=== PATIENT | female | born 1975 | race Caucasian/White ===

== ENCOUNTER 2019-05-31 10:14 | Emergency (ER) | payer SELFPAY ==
--- NOTE | 2019-05-31 10:16 | EDM.PDOC ---
ED HPI GENERAL MEDICAL PROBLEM - General Stated Complaint: BLOOD IN EAR Time Seen by Provider: 05/31/19 10:15 Source of Information: Reports: Patient History Limitations: Reports: No Limitations - History of Present Illness INITIAL COMMENTS - FREE TEXT/NARRATIVE: HISTORY AND PHYSICAL: History of present illness: Patient is a 43-year-old female who presents to the emergency room with complaints of sinus pressure/congestion 4 days. She states this morning she felt a "pop" in her left ear and had been scratching as her left ear was causing some irritation. She states when she had put her nail in her ear canal she had noticed some blood. She was concerned that she perforated her eardrum. Patient denies any fever, chills, headache, change in vision, syncope or near syncope. Denies any chest pain, back pain, shortness of breath or cough. Denies any abdominal pain, nausea, vomiting, diarrhea, constipation or dysuria. Has not noted any blood in urine or stool. Patient has been eating and drinking appropriately. Review of systems: As per history of present illness and below otherwise all systems reviewed and negative. Past medical history: As per history of present illness and as reviewed below otherwise noncontributory. Surgical history: As per history of present illness and as reviewed below otherwise noncontributory. Social history: See social history for further information Family history: As per history of present illness and as reviewed below otherwise noncontributory. Physical exam: General: Well-developed and well-nourished 43-year-old female. Alert and oriented. Nontoxic appearing and in no acute distress. HEENT: Atraumatic, normocephalic, pupils equal and reactive bilaterally, negative for conjunctival pallor or scleral icterus, mucous membranes moist, TMs normal bilaterally, small abrasion on the wall of the left ear canal with dried blood noted, bilateral maxillary sinus tenderness, throat clear, neck supple, nontender, trachea midline. No drooling or trismus noted. No meningeal signs. No hot potato voice noted. Lungs: Clear to auscultation, breath sounds equal bilaterally, chest nontender. Heart: S1S2, regular rate and rhythm without overt murmur Abdomen: Soft, nondistended, nontender. Skin: Intact, warm, dry. No lesions or rashes noted. Extremities: Atraumatic, moves all extremities per self without difficulty or deficits, negative for cords or calf pain. Neurovascular unremarkable. Neuro: Awake, alert, oriented. Cranial nerves II through XII unremarkable. Cerebellum unremarkable. Motor and sensory unremarkable throughout. Exam nonfocal. Notes: Medication and supportive care measures were reviewed and discussed. Voices understanding and is agreeable to plan of care. Denies any further questions or concerns at this time. Diagnostics: None Therapeutics: None Prescription: Doxycycline Impression: Abrasion in the ear cannal Sinusitis Plan: 1. Avoid placing anything in the ear canal. Use the ear drops as directed. 2. Tylenol and/or ibuprofen as needed for pain management. 3. Follow-up with your primary care provider as we discussed. Return to ED as needed and as discussed. Definitive disposition and diagnosis as appropriate pending reevaluation and review of above. - Related Data Allergies Allergy/AdvReac Type Severity Reaction Status Date / Time amoxicillin Allergy Difficulty Verified 05/31/19 10:23 Breathing Penicillins Allergy Difficulty Verified 05/31/19 10:23 Breathing Home Meds: Home Meds Doxycycline [Vibramycin] 100 mg PO BID 7 Days #14 cap 05/31/19 [Rx] ED ROS ENT - Review of Systems Review Of Systems: ROS reveals no pertinent complaints other than HPI. ED EXAM, ENT - Physical Exam Exam: See Below (See dictation) Departure - Departure Time of Disposition: 10:26 Disposition: Home, Self-Care 01 Clinical Impression: Ear canal abrasion Qualifiers: Encounter type: initial encounter Laterality: left Qualified Code(s): S00.412A - Abrasion of left ear, initial encounter Sinusitis Qualifiers: Sinusitis location: maxillary Chronicity: acute Recurrence: non-recurrent Qualified Code(s): J01.00 - Acute maxillary sinusitis, unspecified - Discharge Information Prescriptions: Doxycycline [Vibramycin] 100 mg PO BID 7 Days #14 cap Instructions: Sinusitis, Adult, [id number] Additional Instructions: The following information is given to patients seen in the emergency department who are being discharged to home. This information is to outline your options for follow-up care. We provide all patients seen in our emergency department with a follow-up referral. The need for follow-up, as well as the timing and circumstances, are variable depending upon the specifics of your emergency department visit. If you don't have a primary care physician on staff, we will provide you with a referral. We always advise you to contact your personal physician following an emergency department visit to inform them of the circumstance of the visit and for follow-up with them and/or the need for any referrals to a consulting specialist. The emergency department will also refer you to a specialist when appropriate. This referral assures that you have the opportunity for follow-up care with a specialist. All of these measure are taken in an effort to provide you with optimal care, which includes your follow-up. Under all circumstances we always encourage you to contact your private physician who remains a resource for coordinating your care. When calling for follow-up care, please make the office aware that this follow-up is from your recent emergency room visit. If for any reason you are refused follow-up, please contact the [facility] Emergency Department at and asked to speak to the emergency department charge nurse. [facility] [address] [place] [id number] [facility] [address] [place] [id number] 1. Avoid placing anything in the ear canal. Use the antibiotic as directed. 2. Tylenol and/or ibuprofen as needed for pain management. 3. Follow-up with your primary care provider as we discussed. Return to ED as needed and as discussed.
== END 2019-05-31 10:34 | disposition home or self-care (01) ==
LOC: MW.ED 10:14
DX: S00.412A Abrasion of left ear, initial encounter (principal); J01.00 Acute maxillary sinusitis, unspecified; Z88.0 Allergy status to penicillin; Z88.1 Allergy status to other antibiotic agents; X58.XXXA Exposure to other specified factors, initial encounter
CPT/HCPCS: 99282

== ENCOUNTER 2020-11-03 10:30 | Emergency (ER) | payer SELFPAY ==
[2020-11-03] MEDS ORDERED: methylPREDNISolone Sodium Succinate 125 MG/2 ML SDV IVPUSH ONE (10:36)
[2020-11-03] MEDS ORDERED: diphenhydrAMINE 50 MG/ML SDV IVPUSH ONE (10:36)
--- NOTE | 2020-11-03 10:41 | EDM.PDOC ---
ED HPI GENERAL MEDICAL PROBLEM - General Stated Complaint: ALLERGIC REACTION Time Seen by Provider: 11/03/20 10:32 - History of Present Illness INITIAL COMMENTS - FREE TEXT/NARRATIVE: 45-year-old female not take any medications currently presenting with diffuse itching painful rash that started yesterday has been gradually worsening and is associated with a sensation of throat tightness and difficulty swallowing but no trouble breathing. No fevers no neck pain or stiffness no sore throat but a sensation of throat tightness. Patient tried to take Benadryl last night but was unable to swallow. She states she is a feeling of a lump in her throat. No nausea or vomiting no diarrhea. History of eczema and allergy to penicillins. Denies any new foods or hygiene products no close new laundry detergent etc. She does have a history of eczema. States that for this reason she is very careful about what she expresses septic. No exacerbating or alleviating factors radiation or other associated symptoms. generalized all over Pain Score (Numeric/FACES): 7 - Related Data Allergies Allergy/AdvReac Type Severity Reaction Status Date / Time amoxicillin Allergy Difficulty Verified 05/31/19 10:23 Breathing latex Allergy Hives Verified 11/03/20 10:59 Penicillins Allergy Difficulty Verified 05/31/19 10:23 Breathing Home Meds: Home Meds predniSONE 40 mg PO WITHBREAKFAST 4 Days #4 tab 11/03/20 [Rx] Past Medical History - Infectious Disease History Infectious Disease History: Reports: Chicken Pox - Past Surgical History Female Surgical History: Reports: D&C, Hysterectomy Musculoskeletal Surgical History: Reports: Shoulder Surgery Social & Family History - Family History Family Medical History: No Pertinent Family History - Caffeine Use Caffeine Use: Reports: Coffee ED ROS GENERAL - Review of Systems Review Of Systems: See Below Free Text/Narrative/Comment: General: No fever. Skin: Per HPI Eyes: No vision problems. ENT: Per HPI Neck: No neck stiffness. Respiratory: No shortness of breath. Cardiac: No chest pain. Gastrointestinal: No nausea, vomiting or abdominal pain. Urinary: No dysuria. Musculoskeletal: No myalgias/arthralgias. Neurologic: No headache. ED EXAM, GENERAL - Physical Exam Exam: See Below Free Text/Narrative:: General Appearance: No acute distress, appears comfortable Skin: Diffuse slightly raised erythematous maculopapular rash over the extremities and less so over the torso no exudate no drainage seems most consistent with hives. HEENT: Normocephalic/atraumatic, sclera anicteric, mucous membranes moist, no stridor no intraoral or perioral swelling Neck: Normal range of motion Chest and Lungs: Bilateral breath sounds, clear to auscultation, no wheezing Cardiovascular: Regular rate and rhythm, no murmur Abdomen: Soft, non-tender Musculoskeletal: No edema or tenderness Neurologic: Awake, alert, no obvious deficits, moving all extremities Psychiatric: Appropriate, cooperative Course - Vital Signs Last Recorded V/S: Last Vital Signs Temp 97.2 F 11/03/20 10:52 Pulse 103 H 11/03/20 10:52 Resp 18 11/03/20 10:52 BP 156/77 H 11/03/20 10:52 Pulse Ox 98 11/03/20 10:52 - Orders/Labs/Meds Meds: Medications Discontinued Medications Generic Name Dose Route Start Last Admin Trade Name Freq PRN Reason Stop Dose Admin Diphenhydramine HCl 50 mg 11/03/20 10:36 11/03/20 10:45 Benadryl IVPUSH 11/03/20 10:37 50 mg ONETIME ONE Administration Methylprednisolone Sodium Succinate 125 mg 11/03/20 10:36 11/03/20 10:45 Solu-Medrol IVPUSH 11/03/20 10:37 125 mg ONETIME ONE Administration Departure - Departure Time of Disposition: 11:45 Disposition: Home, Self-Care 01 Condition: Good Clinical Impression: Allergic reaction - Discharge Information *PRESCRIPTION DRUG MONITORING PROGRAM REVIEWED*: Not Applicable *COPY OF PRESCRIPTION DRUG MONITORING REPORT IN PATIENT PAM: Not Applicable Prescriptions: predniSONE 40 mg PO WITHBREAKFAST 4 Days #4 tab Instructions: Allergies, Adult Referrals: Rob Tubbs MD [Primary Care Provider] - 3 Days Kapil Denny MD [Ordering Only Provider] - Additional Instructions: Your first dose of prednisone should be tomorrow morning with breakfast. This prescription will last 4 days. Please plan to take 50 mg of Benadryl every 8 hours for the next few days. The first dose of this should be at approximately 430 today. My hope and expectation is that your symptoms will slowly improve over the next 24 to 48 hours. If you have persistent symptoms following this then I encourage you to follow-up with either dermatology clinic or your primary care doctor. If you develop trouble breathing vomiting or worsening symptoms please return to the ER. The following information is given to patients seen in the emergency department who are being discharged to home. This information is to outline your options for follow-up care. We provide all patients seen in our emergency department with a follow-up referral. The need for follow-up, as well as the timing and circumstances, are variable depending upon the specifics of your emergency department visit. If you don't have a primary care physician on staff, we will provide you with a referral. We always advise you to contact your personal physician following an emergency department visit to inform them of the circumstance of the visit and for follow-up with them and/or the need for any referrals to a consulting specialist. The emergency department will also refer you to a specialist when appropriate. This referral assures that you have the opportunity for follow-up care with a specialist. All of these measure are taken in an effort to provide you with optimal care, which includes your follow-up. Under all circumstances we always encourage you to contact your private physician who remains a resource for coordinating your care. When calling for follow-up care, please make the office aware that this follow-up is from your recent emergency room visit. If for any reason you are refused follow-up, please contact the [facility] Emergency Department at and asked to speak to the emergency department charge nurse. Sepsis Event Note (ED) - Focused Exam Vital Signs: Vital Signs Temp Pulse Resp BP Pulse Ox 11/03/20 10:52 97.2 F 103 H 18 156/77 H 98 - Assessment/Plan Assessment:: 45-year-old female presenting with signs and symptoms that are most consistent with allergic reaction. No clear trigger at this point. Benadryl and Solu- Medrol IV ordered given severity of symptoms and difficulty swallowing. But no signs of true anaphylaxis at this point no indication for epinephrine. We will continue to monitor closely. No findings that would suggest cellulitis or other acute infective process at this point. 1144: On reassessment patient's rash is very slightly less erythematous. However, she still has significant symptoms. That said she has no difficulty breathing no nausea no vomiting no intraoral or perioral swelling no signs of anaphylaxis. She continues to have a globus sensation. On additional assessment she does not have signs that suggest bedbugs or scabies. The rash does appear primarily allergic in nature. Patient and I discussed a trial of subcutaneous epinephrine. However she does not have any difficulty breathing vomiting or change in vital signs that necessitated use. Given that the patient and I have decided to hold off on epinephrine trial at this time. Patient will be discharged with scheduled prednisone for 4 days as well as a plan to do 50 mg of Benadryl every 8 hours. Patient encouraged to follow-up with dermatology if symptoms do not improve. Strict return precautions discussed and understood.
== END 2020-11-03 12:00 | disposition home or self-care (01) ==
LOC: MW.ED 10:30
DX: T78.40XA Allergy, unspecified, initial encounter (principal); Z88.0 Allergy status to penicillin; Z91.040 Latex allergy status
CPT/HCPCS: 96374; 96375; 99283; J1200; J2930; 99282

== ENCOUNTER 2020-11-06 14:20 | Emergency (ER) | payer SELFPAY ==
--- NOTE | 2020-11-06 15:54 | EDM.PDOC ---
ED HPI GENERAL MEDICAL PROBLEM - General Chief Complaint: General Stated Complaint: POSSIBLE ALLERGIC REACTION Time Seen by Provider: 11/06/20 14:44 Source of Information: Reports: Patient History Limitations: Reports: No Limitations - History of Present Illness INITIAL COMMENTS - FREE TEXT/NARRATIVE: HISTORY AND PHYSICAL: History of present illness: Patient is a 45-year-old female who presents emergency room today with concern of hives that have been ongoing for the past 4 days. Patient states that she was seen in the emergency room a few days ago and was given prednisone 40 mg was instructed to take Benadryl. Patient states that she has been taking Benadryl and taking the prednisone but states despite this, she continues to have the hives and states that they are itchy and bothersome to her. Patient is unsure which she is allergic to but states in the past she has had this occur before with seasonal allergies. Patient denies any difficulties breathing or feeling any sensation of swelling in her mouth. Patient states that she would follow-up with her primary care provider and the photonic laboratory technician but she is having issues with insurance so has not been able to do this. Patient states that she does have an appointment tomorrow morning with her primary care provider and states that she will "pay upfront "to see him tomorrow and plans on seeing him. Her primary care provider is Dr. Tubbs. Patient denies any new symptoms from prior evaluation in the emergency room. Patient states that she is out of prednisone tomorrow. Patient denies fever, chills, chest pain, shortness of breath, or cough. Denies headache, neck stiff ness, change in vision, syncope, or near syncope. Denies nausea, vomiting, abdominal pain, diarrhea, constipation, or dysuria. Has not noted any blood in urine or stool. Patient has been eating and drinking appropriately. Review of systems: As per history of present illness and below otherwise all systems reviewed and negative. Past medical history: As per history of present illness and as reviewed below otherwise noncontributory. Surgical history: As per history of present illness and as reviewed below otherwise nonco ntributory. Social history: See social history for further information Family history: As per history of present illness and as reviewed below otherwise noncontributory. Physical exam: General: Patient is alert, oriented, and in no acute distress. Patient sitting comfortably on exam table. HEENT: No lip edema, tongue edema, or oropharyngeal edema. No stridor. Atraumatic, normocephalic, pupils equal and reactive bilaterally, negative for conjunctival pallor or scleral icterus, mucous membranes moist, TMs normal bilaterally, throat clear, neck supple, nontender, trachea midline. No drooling or trismus noted. No meningeal signs. No hot potato voice noted. Lungs: Clear to auscultation, breath sounds equal bilaterally, chest nontender. Heart: S1S2, regular rate and rhythm without overt murmur Abdomen: Soft, nondistended, nontender. Negative for masses or hepatosplenomegaly. Negative for costovertebral tenderness. Pelvis: Stable nontender. Genitourinary: Deferred. Rectal: Deferred. Skin: Diffusely urticaria. Otherwise, intact, warm, dry. No lesions or rashes noted. Extremities: Atraumatic, negative for cords or calf pain. Neurovascular unremarkable. Neuro: Awake, alert, oriented. Cranial nerves II through XII unremarkable. Cerebellum unremarkable. Motor and sensory unremarkable throughout. Exam nonfocal. Notes: On exam, patient does have diffusely urticaria but does not have any lip edema, tongue edema, oropharyngeal edema, or stridor. Patient has alert, oriented, and in no acute distress and breathing comfortably on exam. She is currently taking prednisone 40 mg and is out of prednisone tomorrow. We will give patient an additional 2 days of prednisone but will decrease the dose to 20 mg. Patient states she is also anxious about the possibility of having swelling of her airway. I will provide patient with EpiPen prescription. Discussed continually taking Benadryl. Patient has an appointment tomorrow morning with her primary care provider to address these concerns. Discussed the importance for going to this appointment and following up with her primary care provider in the morning. Voices understanding and is agreeable to plan of care. Denies any further questions or concerns at this time. Diagnostics: None Therapeutics: None Prescription: Prednisone 20 mg x 2 tabs, EpiPen Impression: Urticaria Allergic reaction Plan: 1. Avoid triggers. Continue to monitor for possible exposures/triggers/foods. 2. While symptomatic continue to routinely take Benadryl 50mg every 4-6 hours and Zantac 150mg twice daily. Take medication as prescribed. 3. Carry your Epi-Pen with you at all times. Use in the case of an emergency and call 911 and/or present to the ER. 4. You may use topical calamine lotion, cool tempid oatmeal baths, Aveeno bath/lotions. 5. Consider formal allergy testing once you have completed your medications and have improved. 6. Please follow up with your Primary care doctor tomorrow as scheduled. Return to the ED as needed and as discussed. Definitive disposition and diagnosis as appropriate pending reevaluation and review of above. general Pain Score (Numeric/FACES): 3 - Related Data Allergies Allergy/AdvReac Type Severity Reaction Status Date / Time amoxicillin Allergy Difficulty Verified 11/06/20 14:56 Breathing latex Allergy Hives Verified 11/06/20 14:56 Penicillins Allergy Difficulty Verified 11/06/20 14:56 Breathing Home Meds: Home Meds predniSONE 40 mg PO WITHBREAKFAST 4 Days #4 tab 11/03/20 [Rx] predniSONE 40 mg PO WITHBREAKFAST 2 Days #4 tab 11/04/20 [Rx] EPINEPHrine [Epipen 2-Cyrus] 0.3 mg IJ ONETIME PRN #1 auto.injct 11/06/20 [Rx] predniSONE [Prednisone] 20 mg PO DAILY 5 Days #2 tablet 11/06/20 [Rx] Past Medical History HEENT History: Reports: Sinusitis Gastrointestinal History: Reports: Other (See Below) Other Gastrointestinal History: states within past year "had bowel infection" but was not sure what it was 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 (See Below) Other PARENTING SKILLS INSTRUCTOR History: D&C, medical abortions, emergency hysterectomy Psychiatric History: Reports: Anxiety Hematologic History: Reports: None Oncologic (Cancer) History: Reports: None Dermatologic History: Reports: Eczema - Infectious Disease History Infectious Disease History: Reports: Chicken Pox - Past Surgical History Female Surgical History: Reports: D&C, Hysterectomy Musculoskeletal Surgical History: Reports: Shoulder Surgery Social & Family History - Family History Family Medical History: No Pertinent Family History - Caffeine Use Caffeine Use: Reports: Coffee, Soda ED ROS GENERAL - Review of Systems Review Of Systems: Comprehensive ROS is negative, except as noted in HPI. ED EXAM, GENERAL - Physical Exam Exam: See Below (See dictation) Course - Vital Signs Last Recorded V/S: Last Vital Signs Temp 95.8 F L 11/06/20 14:51 Pulse 79 11/06/20 16:03 Resp 18 11/06/20 16:03 BP 127/81 11/06/20 16:03 Pulse Ox 94 L 11/06/20 16:03 Departure - Departure Time of Disposition: 15:53 Disposition: Home, Self-Care 01 Clinical Impression: Urticaria Allergic reaction Qualifiers: Encounter type: subsequent encounter Qualified Code(s): T78.40XD - Allergy, unspecified, subsequent encounter - Discharge Information Prescriptions: EPINEPHrine [Epipen 2-Cyrus] 0.3 mg IJ ONETIME PRN #1 auto.injct PRN Reason: Other predniSONE [Prednisone] 20 mg PO DAILY 5 Days #2 tablet Instructions: Allergies, Adult Referrals: PCP,None [Primary Care Provider] - Forms: ED Department Discharge Additional Instructions: The following information is given to patients seen in the emergency department who are being discharged to home. This information is to outline your options for follow-up care. We provide all patients seen in our emergency department with a follow-up referral. The need for follow-up, as well as the timing and circumstances, are variable depending upon the specifics of your emergency department visit. If you don't have a primary care physician on staff, we will provide you with a referral. We always advise you to contact your personal physician following an emergency department visit to inform them of the circumstance of the visit and for follow-up with them and/or the need for any referrals to a consulting specialist. The emergency department will also refer you to a specialist when appropriate. This referral assures that you have the opportunity for follow-up care with a specialist. All of these measure are taken in an effort to provide you with optimal care, which includes your follow-up. Under all circumstances we always encourage you to contact your private physician who remains a resource for coordinating your care. When calling for follow-up care, please make the office aware that this follow-up is from your recent emergency room visit. If for any reason you are refused follow-up, please contact the [facility] Emergency Department at and asked to speak to the emergency department charge nurse. [facility] [address] [place] [id number] [id number] [place] [address] 1. Avoid triggers. Continue to monitor for possible exposures/triggers/foods. 2. While symptomatic continue to routinely take Benadryl 50mg every 4-6 hours and Zantac 150mg twice daily. Take medication as prescribed. 3. Carry your Epi-Pen with you at all times. Use in the case of an emergency and call 911 and/or present to the ER. 4. You may use topical calamine lotion, cool tempid oatmeal baths, Aveeno bath/lotions. 5. Consider formal allergy testing once you have completed your medications and have improved. 6. Please follow up with your Primary care doctor tomorrow as scheduled. Return to the ED as needed and as discussed. Sepsis Event Note (ED) - Evaluation Sepsis Screening Result: No Definite Risk - Focused Exam Vital Signs: Vital Signs Temp Pulse Resp BP Pulse Ox 11/06/20 16:03 79 18 127/81 94 L 11/06/20 14:51 95.8 F L 76 18 131/80 96
== END 2020-11-06 16:05 | disposition home or self-care (01) ==
LOC: MW.ED 14:20
DX: L50.0 Allergic urticaria (principal); Z91.040 Latex allergy status; Z88.0 Allergy status to penicillin
CPT/HCPCS: 99283

== ENCOUNTER 2020-11-07 20:20 | Emergency (ER) | payer SELFPAY ==
--- NOTE | 2020-11-07 20:29 | EDM.PDOC ---
<Julian Driver - Last Filed: 11/08/20 04:56> ED HPI GENERAL MEDICAL PROBLEM - General Chief Complaint: ENT Problem Stated Complaint: TROUBLE BREATHING, SOMETHING IN THROAT Time Seen by Provider: 11/07/20 20:21 - History of Present Illness INITIAL COMMENTS - FREE TEXT/NARRATIVE: Patient was signed out to me by Marlys HAM pending evaluation by Dr. Garza at 7PM Dr. Garza did come and evaluate the patient. At the time of his evaluation the patient had tolerated p.o. with no further episodes of vomiting. At this time it is uncertain as to what is causing the patient's symptoms however given her ability to tolerate p.o. she is not a candidate for emergent endoscopy. In discussion with Dr. Garza the patient will go home on famotidine and Zofran. She will follow up with her primary care physician. She is to return for any new or worsening symptoms. DISPOSITION: The patient was discharged home in stable condition. The patient will follow up with primary care physician in 2 to 3 days CONDITION: Fair PROCEDURES: None FINAL IMPRESSION(S)/DIAGNOSES: 1. Acute pill esophagitis Julian Driver M.D. - Related Data Allergies Allergy/AdvReac Type Severity Reaction Status Date / Time amoxicillin Allergy Difficulty Verified 11/07/20 20:32 Breathing latex Allergy Hives Verified 11/07/20 20:32 Penicillins Allergy Difficulty Verified 11/07/20 20:32 Breathing Home Meds: Home Meds EPINEPHrine [Epipen 2-Cyrus] 0.3 mg IJ ONETIME PRN #1 auto.injct 11/06/20 [Rx] Cefdinir 300 mg PO BID 11/07/20 [History] hydrOXYzine pamoate [Hydroxyzine Pamoate] 50 mg PO QID 11/07/20 [History] prednisoLONE [Prednisolone] 1.3 ml PO DAILY 11/07/20 [History] Famotidine 40 mg PO DAILY #70 oral.susp 11/08/20 [Rx] Ondansetron [Zofran ODT] 4 mg PO Q6H PRN #12 tab.dis 11/08/20 [Rx] Departure - Departure Time of Disposition: 00:05 Disposition: Home, Self-Care 01 Condition: Fair Clinical Impression: Pill esophagitis - Discharge Information *PRESCRIPTION DRUG MONITORING PROGRAM REVIEWED*: No *COPY OF PRESCRIPTION DRUG MONITORING REPORT IN PATIENT PAM: No Prescriptions: Famotidine 40 mg PO DAILY #70 oral.susp Ondansetron [Zofran ODT] 4 mg PO Q6H PRN #12 tab.dis PRN Reason: Nausea Instructions: Esophagitis Referrals: Rob Tubbs MD [Primary Care Provider] - Forms: ED Department Discharge Additional Instructions: You were evaluated today on an emergent basis. At this time given the symptoms it is likely secondary to what is called pill esophagitis. I recommended continued use of Zofran as needed for nausea and famotidine daily for 2 weeks. Please follow-up with Dr. Harding for continued work-up. You are welcome to return to the emergency department for any new or worsening symptoms such as throat swelling, shortness of breath or chest pain. [facility] - [facility] [address] [place] [address] [place] [address] The patient is informed of any results of their evaluation and diagnostic workup and all questions are answered. They are given discharge instructions and return precautions. The patient is stable for discharge. The patient states they understand and agree with the plan and that they will return if their symptoms get worse or if they have any new concerns. The following information is given to patients seen in the emergency department who are being discharged to home. This information is to outline your options for follow-up care. We provide all patients seen in our emergency department with a follow-up referral. The need for follow-up, as well as the timing and circumstances, are variable depending upon the specifics of your emergency department visit. If you don't have a primary care physician on staff, we will provide you with a referral. We always advise you to contact your personal physician following an emergency department visit to inform them of the circumstance of the visit and for follow-up with them and/or the need for any referrals to a consulting specialist. The emergency department will also refer you to a specialist when appropriate. This referral assures that you have the opportunity for follow-up care with a specialist. All of these measure are taken in an effort to provide you with optimal care, which includes your follow-up. Under all circumstances we always encourage you to contact your private physician who remains a resource for coordinating your care. When calling for follow-up care, please make the office aware that this follow-up is from your recent emergency room visit. If for any reason you are refused follow-up, please contact the [facility] Emergency Department at and asked to speak to the emergency department charge nurse. <Jorge Blanco E - Last Filed: 11/08/20 09:53> ED HPI GENERAL MEDICAL PROBLEM - General Source of Information: Reports: Patient History Limitations: Reports: No Limitations - History of Present Illness INITIAL COMMENTS - FREE TEXT/NARRATIVE: HISTORY AND PHYSICAL: History of present illness: Patient is a 45-year-old female who presents to the emergency room with complaints of sensation of foreign body in her esophagus. She states at 9 AM this morning she took an Aleve and felt like it was stuck. Since that time she has been attempting to eat and drink which she states will go down but immediately come back up. Patient denies any fever, chills, headache, change in vision, syncope or near syncope. Denies any chest pain, back pain, shortness of breath, cough, difficulty swallowing saliva or drooling. Denies any abdominal pain, nausea, vomiting, diarrhea, constipation or dysuria. Has not noted any blood in urine or stool. Patient has been eating and drinking appropriately. Patient was seen yesterday in the emergency room for an allergic reaction. She was taking prednisone, did receive a refill along with an EpiPen prescription. Patient at that time had the sensation of tightness in her throat although did not have any angioedema. She was able to be discharged to home. Patient reports she has not been able to take her prednisone today, although feels her allergic reaction symptoms have resolved. Review of systems: As per history of present illness and below otherwise all systems reviewed and negative. Past medical history: As per history of present illness and as reviewed below otherwise noncontributory. Surgical history: As per history of present illness and as reviewed below otherwise noncontributory. Social history: See social history for further information Family history: As per history of present illness and as reviewed below otherwise noncontributory. Physical exam: General: Well developed and well nourished. Alert and orientated x 3. Nontoxic in appearance and in no acute distress. Vital signs are stable and have been reviewed by me. Nursing notes were reviewed. HEENT: Atraumatic, normocephalic, pupils equal and reactive bilaterally, negative for conjunctival pallor or scleral icterus, mucous membranes moist, TMs normal bilaterally, throat clear, neck supple, nontender, trachea midline. No drooling or trismus noted. No meningeal signs. No hot potato voice noted. Lungs: Clear to auscultation bilaterally. No wheezes, rales, or rhonchi. Chest nontender. Normal work of breathing, no accessory muscles used. Heart: S1S2, regular rate and rhythm without overt murmur, gallops, or rubs. No JVD. No peripheral edema Abdomen: Soft, nondistended, nontender. Normoactive bowel sounds. Negative for masses or costovertebral tenderness. Skin: Intact, warm, dry. No lesions or rashes noted. Hematologic: No petechiae or purpra. Mucosa appropriate color and normal nail bed color and refill. Extremities: Atraumatic, moves all extremities per self without difficulty or deficits, negative for cords or calf pain. Neurovascular unremarkable. Neuro: Awake, alert, oriented. Cranial nerves II through XII unremarkable. Cerebellum unremarkable. Motor and sensory unremarkable throughout. Exam nonfocal. Psychiatric: Mood and affect are appropriate. Normal thought process. Answering questions appropriately. Notes: *This patient was seen and evaluated during the 2019 SARS-CoV-2 novel coronavirus pandemic period. Community viral transmission is ongoing at time of this encounter and the emergency department is operating under pandemic response procedures. Upon arrival the patient states she has not been able to keep anything down since this morning. We did discuss doing IV glucagon and fluids with a PO challenge to follow. Patient was able to keep down Coca-Cola and saltine crackers. She states she still has the sensation that something is in her throat although she is speaking in clear sentences unable to keep fluids and food down. I did talk with Dr. Garza, the hospitalist on-call about this patient. I will continue to monitor patient and talk with Greg again if needed. Due to the patient's recent allergic reaction I will give her some IV Solu-medrol and Zofran. Her vital signs are stable and she is in no acute distress. Breathing easy and even. Shortly after talking with Greg, patient vomited the Crackers and Coke. Patient continues to have sensation of FB. Greg was consulted again, he will come in and see patient and further evaluate. Patient is aware. She is vitally stable and in no acute distress. Diagnostics: CBC, CMP, COVID Therapeutics: Glucagon, IV fluids, Solu-Medrol, Zofran Impression: Pill Esophagitis Definitive disposition and diagnosis as appropriate pending reevaluation and review of above. Past Medical History HEENT History: Reports: Sinusitis Gastrointestinal History: Reports: Other (See Below) Other Gastrointestinal History: states within past year "had bowel infection" but was not sure what it was [employer] History: Reports: Other (See Below) Other [employer] History: D&C, medical abortions, emergency hysterectomy Psychiatric History: Reports: Anxiety Hematologic History: Reports: None Oncologic (Cancer) History: Reports: None Dermatologic History: Reports: Eczema - Infectious Disease History Infectious Disease History: Reports: Chicken Pox - Past Surgical History Female Surgical History: Reports: D&C, Hysterectomy Musculoskeletal Surgical History: Reports: Shoulder Surgery Social & Family History - Family History Family Medical History: No Pertinent Family History - Caffeine Use Caffeine Use: Reports: Coffee, Soda ED ROS ENT - Review of Systems Review Of Systems: Comprehensive ROS is negative, except as noted in HPI. ED EXAM, ENT - Physical Exam Exam: See Below (See dictation) Course - Vital Signs Last Recorded V/S: Last Vital Signs Temp 98 F 11/08/20 00:19 Pulse 80 11/08/20 00:19 Resp 16 11/08/20 00:19 BP 135/56 L 11/08/20 00:19 Pulse Ox 99 11/08/20 00:19 - Orders/Labs/Meds Labs: Laboratory Tests 11/07/20 11/07/20 Range/Units 20:37 20:37 WBC 11.90 H (4.0-11.0) K/uL RBC 5.50 (4.30-5.90) M/uL Hgb 15.9 (12.0-16.0) g/dL Hct 46.9 H (36.0-46.0) % MCV 85.3 (80.0-98.0) fL MCH 28.9 (27.0-32.0) pg MCHC 33.9 (31.0-37.0) g/dL RDW Std Deviation 43.1 (28.0-62.0) fl RDW Coeff of Elizabeth 14 (11.0-15.0) % Plt Count 354 (150-400) K/uL MPV 10.50 (7.40-12.00) fL Neut % (Auto) 47.2 L (48.0-80.0) % Lymph % (Auto) 34.2 (16.0-40.0) % Kleberg % (Auto) 7.1 (0.0-15.0) % Eos % (Auto) 10.8 H (0.0-7.0) % Baso % (Auto) 0.7 (0.0-1.5) % Neut # (Auto) 5.6 (1.4-5.7) K/uL Lymph # (Auto) 4.1 H (0.6-2.4) K/uL Kleberg # (Auto) 0.9 H (0.0-0.8) K/uL Eos # (Auto) 1.3 H (0.0-0.7) K/uL Baso # (Auto) 0.1 (0.0-0.1) K/uL Nucleated RBC % 0.0 /100WBC Nucleated RBCs # 0 K/uL Sodium 145 (136-145) mmol/L Potassium 4.0 (3.5-5.1) mmol/L Chloride 107 (98-107) mmol/L Carbon Dioxide 25.4 (21.0-32.0) mmol/L BUN 10 (7.0-18.0) mg/dL Creatinine 0.8 (0.6-1.0) mg/dL Est Cr Clr Drug Dosing 78.30 mL/min Estimated GFR (MDRD) > 60.0 ml/min Glucose 133 H (74-106) mg/dL Calcium 8.8 (8.5-10.1) mg/dL Total Bilirubin 0.3 (0.2-1.0) mg/dL AST 16 (15-37) IU/L ALT 37 (14-63) IU/L Alkaline Phosphatase 91 (46-116) U/L Total Protein 6.8 (6.4-8.2) g/dL Albumin 3.6 (3.4-5.0) g/dL Globulin 3.2 (2.6-4.0) g/dL Albumin/Globulin Ratio 1.1 (0.9-1.6) Meds: Medications Discontinued Medications Generic Name Dose Route Start Last Admin Trade Name Guilherme PRN Reason Stop Dose Admin Glucagon 1 mg 11/07/20 20:31 11/07/20 20:39 Glucagen IVPUSH 11/07/20 20:32 1 mg ONETIME ONE Administration Sodium Chloride 1,000 mls @ 125 mls/hr 11/07/20 20:31 11/07/20 20:38 Normal Saline IV 11/08/20 04:30 125 mls/hr STAT ONE Administration Methylprednisolone Sodium Succinate 125 mg 11/07/20 21:19 11/07/20 21:29 Solu-Medrol IVPUSH 11/07/20 21:20 125 mg ONETIME ONE Administration Ondansetron HCl 4 mg 11/07/20 21:32 11/07/20 21:38 Zofran IVPUSH 11/07/20 21:33 4 mg ONETIME ONE Administration Sepsis Event Note (ED) - Focused Exam Vital Signs: Vital Signs Temp Pulse Resp BP Pulse Ox 11/08/20 00:19 98 F 80 16 135/56 L 99
[2020-11-07] MEDS ORDERED: Glucagon,Human Recombinant 1 MG Vial IVPUSH ONE (20:31)
[2020-11-07] MEDS ORDERED: Sodium Chloride 0.9% 1,000 ML IV ONE (20:31)
[2020-11-07] MEDS ORDERED: methylPREDNISolone Sodium Succinate 125 MG/2 ML SDV IVPUSH ONE (21:19)
[2020-11-07] MEDS ORDERED: Ondansetron 4 MG/2 ML SDV IVPUSH ONE (21:32)
[2020-11-07 22:06] LABS: BLOOD UREA NITROGEN,BUN 10 mg/dL (7.0-18.0); CARBON DIOXIDE,CO2 25.4 mmol/L (21.0-32.0); CHLORIDE,CL 107 mmol/L (98-107); GLUCOSE RANDOM 133 mg/dL (74-106); SODIUM,NA 145 mmol/L (136-145)
--- NOTE | 2020-11-08 01:20 | HP ---
DATE OF : 1975 PRIMARY CARE PHYSICIAN: GLEN RODRIGUEZ MD HISTORY OF PRESENT ILLNESS: The patient is a pleasant 45-year-old female who says this morning around 5:30 a.m., she took 2 Aleve because of a migraine. She feels like one went down, but the other one got stuck. Ever since then, she has had issues with eating and swallowing. She has been able to keep saliva down, but anytime she eats or drinks, it will go down and come right back up again. She says she is breathing okay. She denies any fevers or chills. She denies really any chest pain. She did have some nausea and vomiting after initial fluid challenge; however, she said after she got some Zofran, she has been able to drink without issues. She will drink about 3 or 4 cups of water without difficulty, without nausea or vomiting. Of note, the patient was recently treated for some type of allergic reaction. She has been placed on steroid treatment. The patient says in the past she has not had an issue with swallowing other than she had issues with swallowing diet pill she was on. PAST MEDICAL HISTORY: The patient really denies any other than this allergic reaction she had earlier this week. HOME MEDICATIONS: 1. Hydroxyzine 50 mg p.o. q.i.d. 2. Epinephrine injection p.r.n. 3. Prednisone liquid. 4. Cefdinir 300 mg p.o. b.i.d. ALLERGIES: 1. Amoxicillin. 2. Latex. 3. Penicillin. PAST SURGICAL HISTORY: 1. Shoulder surgery. 2. Hysterectomy. 3. Ovarian cyst. 4. D and C. 5. Medical abortions. FAMILY HISTORY: 1. Grandfather with cancer. 2. Mother had AL. 3. Father had dementia. 4. Brother had stroke. SOCIAL HISTORY: Patient does smoke 1 pack of cigarettes per day. Denies any alcohol use. Denies illicit drug use. REVIEW OF SYSTEMS: A complete 10+ review of systems was done and was negative except for what is in HPI and the patient has a history of heartburn. She says she often uses Tums. SKIN: The patient does have a rash as part of her allergic reactions she has been having. PHYSICAL EXAMINATION: GENERAL: The patient is sitting comfortably in the ER chair. She is alert and oriented, in no acute distress. VITAL SIGNS: Temperature is 97.1, pulse 79, saturating 95% on room air. HEENT: Head is normocephalic, atraumatic. LUNGS: Clear to auscultation bilaterally. No rhonchi or wheezing heard. HEART: Regular rate and rhythm. No murmur appreciated. ABDOMEN: Soft, nontender, and nondistended. NEUROLOGIC: Grossly, no motor or neurological deficit noted. ASSESSMENT AND PLAN: The patient is a pleasant 45-year-old female. It sounds like she has a history of issues with swallowing pills. This morning, she took some Aleve that got stuck. She started having episodes of nausea and vomiting. She is unable to keep fluids and food down. After getting some Zofran and some fluids in the ER, she has now been able to tolerate liquids without much issue along with some Jell-O. I did go over with the patient that we will perhaps do an EGD. I did go over what the EGD was along with risks, goals, alternatives of this. I went over that she would be intubated, and in that way we could make sure there was nothing in the esophagus; however, with her current swallowing fluids and Jell-O with no real issues, the Aleve likely has passed. I did have a long discussion with the patient and her about this. Currently, patient would like to wait and do more workup as an outpatient for swallowing. The patient promised that if she has any vomiting or if the food is stuck, she says she will come back again. Otherwise, she will follow up as outpatient for her swallowing issues. Discussed with the ER physician. We will plan to send her home with some Zofran and also recommend an antacid for her heartburn. VICTORINO CRUZ /[id number] CASSIA
== END 2020-11-08 00:19 | disposition home or self-care (01) ==
LOC: MW.ED 20:20
DX: K20.90 Esophagitis, unspecified without bleeding (principal); Z88.0 Allergy status to penicillin; Z91.040 Latex allergy status; Z79.899 Other long term (current) drug therapy
CPT/HCPCS: 36415; 80053; 85025; 96374; 96375; 99283; J1610; J2405; J2930; J7030

== ENCOUNTER 2022-06-02 07:18 | Day surgery (SDC) | payer BC, OTHER ==
[2022-06-02] MEDS ORDERED: Lidocaine 2% 5 ML SDV ONE (07:25)
[2022-06-02] MEDS ORDERED: Propofol 200 MG/20 ML SDV ONE (07:25)
[2022-06-02] MEDS ORDERED: fentaNYL 100 MCG/2 ML SDV ONE (07:25)
[2022-06-02] MEDS ORDERED: Lactated Ringers 1,000 ML IV SCH (07:45)
== END 2022-06-02 09:55 | disposition home or self-care (01) ==
LOC: MW.SDS 07:18
PROVIDERS: ATTEND Surgery
DX: D12.6 Benign neoplasm of colon, unspecified (principal); D12.0 Benign neoplasm of cecum; F41.9 Anxiety disorder, unspecified; K21.9 Gastro-esophageal reflux disease without esophagitis; F32.A Depression, unspecified; J45.909 Unspecified asthma, uncomplicated; E66.9 Obesity, unspecified; F17.210 Nicotine dependence, cigarettes, uncomplicated; Z88.0 Allergy status to penicillin; Z91.040 Latex allergy status; Z79.899 Other long term (current) drug therapy; Z90.710 Acquired absence of both cervix and uterus; Z98.890 Other specified postprocedural states
CPT/HCPCS: 45380; J2704; J3010; J7120; 00811

== ENCOUNTER 2022-07-19 18:25 | Emergency (ER) | payer BC, OTHER ==
[2022-07-19] MEDS ORDERED: Ondansetron 4 MG/2 ML SDV IVPUSH ONE (19:40)
[2022-07-19] MEDS ORDERED: Morphine 4 MG/ML Syringe IVPUSH ONE (19:40)
[2022-07-19 20:42] LABS: CARBON DIOXIDE,CO2 25.5 mmol/L (21.0-32.0); POTASSIUM,K 4.1 mmol/L (3.5-5.1)
== END 2022-07-19 21:25 | disposition home or self-care (01) ==
LOC: MW.ED 18:25
DX: R10.84 Generalized abdominal pain (principal); J45.909 Unspecified asthma, uncomplicated; E66.9 Obesity, unspecified; Z68.37 Body mass index [BMI] 37.0-37.9, adult; Z88.0 Allergy status to penicillin; Z91.040 Latex allergy status; Z88.8 Allergy status to other drugs, medicaments and biological substances; Z91.018 Allergy to other foods; Z91.048 Other nonmedicinal substance allergy status; Z98.890 Other specified postprocedural states
CPT/HCPCS: 36415; 80053; 81001; 81025; 83690; 83735; 85025; 96374; 96375; 99284; J2270; J2405

== ENCOUNTER 2023-02-18 19:33 | Emergency (ER) | payer BC, OTHER ==
[2023-02-18] MEDS ORDERED: Sodium Chloride 0.9% 2.5 ML Syringe FLUSH PRN (21:04)
[2023-02-18] MEDS ORDERED: Sodium Chloride 0.9% 10 ML Syringe FLUSH PRN (21:04)
[2023-02-18] MEDS ORDERED: Sodium Chloride 0.9% 1,000 ML IV STA (21:07)
[2023-02-18 21:28] LABS: BASOPHILS ABSOLUTE AUTO 0.1 K/uL (0.0-0.1); BASOPHILS PERCENT AUTO 0.6 % (0.0-1.5); EOSINOPHILS ABSOLUTE AUTO 0.7 K/uL (0.0-0.7); EOSINOPHILS PERCENT AUTO 4.8 % (0.0-7.0); HEMATOCRIT 46.2 % (36.0-46.0); HEMOGLOBIN 15.8 g/dL (12.0-16.0); LYMPHOCYTES PERCENT AUTO 28.3 % (16.0-40.0); MEAN CORPUSCULAR HEMOGLOBIN 28.7 pg (27.0-32.0); MEAN CORPUSCULAR HGB CONC 34.2 g/dL (31.0-37.0); MONOCYTES PERCENT AUTO 6.9 % (0.0-15.0); NEUTROPHILS ABSOLUTE AUTO 8.3 K/uL (1.4-5.7); NEUTROPHILS PERCENT AUTO 59.4 % (48.0-80.0); NRBC ABSOLUTE 0 K/uL; PLATELET COUNT,PLT 277 K/uL (150-400); WHITE BLOOD CELL COUNT,WBC 13.97 K/uL (4.0-11.0)
[2023-02-18 21:43] LABS: A/G RATIO 1.1 (0.9-1.6); ALBUMIN 3.8 g/dL (3.4-5.0); BILIRUBIN TOTAL 0.3 mg/dL (0.2-1.0); CALCIUM 8.9 mg/dL (8.5-10.1); CARBON DIOXIDE,CO2 26.8 mmol/L (21.0-32.0); CREATININE 0.8 mg/dL (0.6-1.0); EST CRCL DRUG DOSING (CG) 76.68 mL/min; PROTEIN TOTAL,TP 7.2 g/dL (6.4-8.2)
[2023-02-18] MEDS ORDERED: Iopamidol 755 MG/ML 500 ML Multipack Bottle IVPUSH ONE (21:57)
== END 2023-02-19 01:50 | disposition left against medical advice (07) ==
LOC: MW.ED 19:33
DX: R10.13 Epigastric pain (principal); F17.210 Nicotine dependence, cigarettes, uncomplicated; J45.909 Unspecified asthma, uncomplicated; M19.90 Unspecified osteoarthritis, unspecified site; E66.9 Obesity, unspecified; Z68.39 Body mass index [BMI] 39.0-39.9, adult; Z88.0 Allergy status to penicillin; Z88.8 Allergy status to other drugs, medicaments and biological substances; Z91.040 Latex allergy status; Z91.018 Allergy to other foods; Z91.048 Other nonmedicinal substance allergy status; Z79.899 Other long term (current) drug therapy
CPT/HCPCS: 36415; 74177; 76856; 80053; 83690; 85025; 96360; 99284; J3490; J7030; Q9967; 99283